=== PATIENT | female | born 1955 | race Hispanic/Latino ===

== ENCOUNTER 2020-02-17 21:38 | Inpatient (IN) | payer OTHER ==
[~2020-02-17] VITALS: Ht 162.6 cm; Wt 102.1 kg
[2020-02-17] MEDS ORDERED: ALBUTEROL INHALER 90MCG/INH IH ONE (21:55)
[2020-02-17] MEDS ORDERED: DEXAMETHASONE SOD PHOSPHATE 10MG/ML 1ML VIAL ONE (21:56)
[2020-02-17] MEDS ORDERED: CEFTRIAXONE SODIUM 1 GM ONE (21:56)
[2020-02-17] MEDS ORDERED: AZITHROMYCIN 500MG+NS 250ML 250 ML IV ONE (21:56)
[2020-02-17 22:03] LABS: ABG BASE EXCESS -3.4 mmol/L (-2.0-3.0); ABG HCO3 20.3 mmol/L (21.0-28.0); ABG OXYGEN SATURATION 89.6 % (95.0-99.0); ABG PCO2 33 mmHg (32-45)
[2020-02-17 22:34] LABS: BASOPHILS % (AUTO) 0.2 % (0.0-5.0); HEMATOCRIT 44.1 % (36-48); LYMPHOCYTES % (AUTO) 10.6 % (21.0-51.0); MEAN CORPUSCULAR HEMOGLOBIN 30.9 pg (27.0-33.0); MEAN CORPUSCULAR VOLUME 90.9 fL (79-99); MONOCYTES % (AUTO) 8.1 % (3.0-13.0); NEUTROPHILS % (AUTO) 80.6 % (40.0-77.0); PLATELET COUNT (AUTO) 87 K/uL (130-400); RED BLOOD CELL COUNT(AUTO) 4.85 MIL/uL (4.00-5.50); RED CELL DISTRIBUTION WIDTH 13.3 % (11.0-15.5); WHITE BLOOD COUNT (AUTO) 4.3 K/uL (4.8-10.8)
[2020-02-17 22:45] LABS: CARBON DIOXIDE 24 mmol/L (21-32); CHLORIDE 103 mmol/L (101-111); CREATININE 0.9 mg/dL (0.5-1.5); GLOMERULAR FILTR. RATE CALC 67 mL/min (>60); GLUCOSE,RANDOM 262 mg/dL (70-105); POTASSIUM 3.6 mmol/L (3.5-5.1); SODIUM SERUM 137 mmol/L (136-145); UREA NITROGEN, BLOOD 26 mg/dL (7-18)
[2020-02-17 22:53] LABS: INR 1.06 (0.85-1.15); PARTIAL THROMBOPLASTIN TIME 30.8 SEC (26.3-35.5); PROTHROMBIN TIME 11.4 SEC (9.6-11.6)
[2020-02-17 22:57] LABS: ALANINE AMINOTRANSFERASE 83 U/L (12-78); ALBUMIN 2.3 g/dL (3.5-5.0); ASPARTATE AMINOTRANSFERASE 165 U/L (10-37); BILIRUBIN,TOTAL 1.8 mg/dL (0.2-1.0); CREATINE KINASE, TOTAL 179 U/L (21-232); MYOGLOBIN 153 ng/mL (10-92); TOTAL PROTEIN, SERUM 7.6 g/dL (6.0-8.3); TROPONIN I < 0.04 ng/mL (0.00-0.06)
[2020-02-18] MEDS ORDERED: IOHEXOL 350 MG/ML 100ML INFUS..BTL IV ONE (01:22)
[2020-02-18] MEDS ORDERED: DiphenhydrAMINE HCL 50 MG/ML VIAL IV PRN (01:45)
[2020-02-18] MEDS ORDERED: ZOLPIDEM TARTRATE 5 MG TAB PO PRN (01:45)
[2020-02-18] MEDS ORDERED: ONDANSETRON HCL 4 MG/2 ML VIAL IV PRN (01:45)
[2020-02-18] MEDS ORDERED: ACETAMINOPHEN 325 MG TAB PO PRN (01:45)
[2020-02-18] MEDS ORDERED: MAG HYDROX/AL HYDROX/SIMETH ES 30 ML SUSP UDCUP PO PRN (01:45)
[2020-02-18] MEDS ORDERED: VANCOMYCIN PROTOCOL PER PHARMACY IV SCH (01:45)
[2020-02-18] MEDS ORDERED: LACTULOSE 20 GM/30 ML UDCUP PO PRN (01:45)
[2020-02-18] MEDS ORDERED: GUAIFENESIN-DM 200/20 MG 10 ML PO PRN (01:45)
[2020-02-18 02:28] LABS: BILIRUBIN,URINE Small (NEGATIVE); COLOR,URINE Dark Yellow (YELLOW); GLUCOSE, URINE (UA) >=1000 mg/dL (NEGATIVE); KETONES,URINE Trace mg/dL (NEGATIVE); LEUKOCYTE ESTERASE ,URINE Small (NEGATIVE); NITRATE,URINE Positive (NEGATIVE); OCCULT BLOOD,URINE Large (NEGATIVE); PH,URINE 5.5 (5.0-8.0); PROTEIN,URINE 300 mg/dL (NEGATIVE)
[2020-02-18 02:48] LABS: APPEARANCE,URINE CLOUDY (CLEAR)
[2020-02-18 03:04] LABS: BACTERIA,URINE Moderate /HPF (None Seen); SQUAMOUS EPITHELIAL CELL,UR Moderate /HPF (0-2); YEAST,URINE BUDDING None Seen /HPF (None Seen)
[2020-02-18] MEDS ORDERED: VANCOMYCIN 1GM+NS 250ML 250 ML IV ONE (03:35)
[2020-02-18 04:33] LABS: BASOPHILS % (AUTO) 0.4 % (0.0-5.0); EOSINOPHILS % (AUTO) 0.2 % (0.0-8.0); HEMATOCRIT 46.7 % (36-48); LYMPHOCYTES % (AUTO) 7.6 % (21.0-51.0); MEAN CORPUSCULAR HGB CONC 34.5 g/dL (32.0-36.0); MONOCYTES % (AUTO) 5.2 % (3.0-13.0); NEUTROPHILS % (AUTO) 83.6 % (40.0-77.0); PLATELET COUNT (AUTO) 90 K/uL (130-400); RED BLOOD CELL COUNT(AUTO) 5.19 MIL/uL (4.00-5.50); RED CELL DISTRIBUTION WIDTH 13.2 % (11.0-15.5)
[2020-02-18] MEDS: SODIUM CHLORIDE 0.9% 1000ML 1,000 ML, 0.9 % SODIUM CHLORIDE 1,000 ML IV SCH ×8 (05:10→20:57)
[2020-02-18 05:30] LABS: ALBUMIN 2.3 g/dL (3.5-5.0); BILIRUBIN,TOTAL 1.8 mg/dL (0.2-1.0); CREATININE 0.7 mg/dL (0.5-1.5); MAGNESIUM 1.7 mg/dL (1.80-2.40); PHOSPHORUS 3.3 mg/dL (2.5-4.9); POTASSIUM 3.9 mmol/L (3.5-5.1); TOTAL PROTEIN, SERUM 7.8 g/dL (6.0-8.3)
[2020-02-18 06:45] VITALS: BP 155/74
[2020-02-18] MEDS ORDERED: ERGOCALCIFEROL (VITAMIN D2) 50,000 UNIT CAPSULE PO SCH (07:02)
[2020-02-18] MEDS: INSULIN LISPRO 100 UNIT/ML 3ML SQ SCH ×5 (07:09→22:00)
[2020-02-18 07:45] VITALS: BP 106/45
--- NOTE | 2020-02-18 08:28 | NUR ---
RECEIVED CALL FROM PT.'S DAUGHTER, OCTAVIA COY, UPDATED ON STATUS AND QUESTIONS ANSWERED, VERBALIZED UNDERSTANDING.
[2020-02-18] MEDS ORDERED: FAMOTIDINE 20MG TAB 20 MG TAB PO SCH (09:00)
[2020-02-18] MEDS ORDERED: DEXAMETHASONE SOD PHOSPHATE 4 MG/ML 1ML VIAL IVP SCH (09:00)
[2020-02-18] MEDS: BENZONATATE 100 MG CAPSULE PO SCH ×3 (09:00→20:58)
[2020-02-18] MEDS ORDERED: DEXAMETHASONE 4 MG TAB PO SCH (09:00)
[2020-02-18] MEDS ORDERED: ENOXAPARIN SODIUM 40 MG/0.4 ML SYRINGE SQ SCH (09:00)
[2020-02-18] MEDS: ZINC SULFATE 220 CAPSULE PO SCH (09:00)
[2020-02-18] MEDS: ASCORBIC ACID 500 MG TAB PO SCH (09:00)
--- NOTE | 2020-02-18 09:25 | NUR ---
CHART CHECK COMPLETED. Pt IS A 64 Y.O. FEMALE ADMITTED SECONDARY TO RESPIRATORY DISTRESS, SEPSIS, R/O COVID, HYPERGLYCEMIA, AND LACTIC ACID ACIDOSIS. Pt WITH NO SIGNIFICANT PAST MEDICAL HISTORY REPORTED . Pt CURRENTLY ON REGULAR TEXTURE,THIN LIQUID DIET (CONSISTENT CARB). Pt ON BIPAP/CPAP AT THIS TIME; PLEASE CONSIDER NPO, SHORT TERM ALTERNATE MEANS OF NUTRITION/HYDRATION DUE TO POOR RESPIRATORY STATUS. Pt AT HIGH RISK FOR ASPIRATION ON BIPAP. Addendum: 02/18/20 at 0934 by [facility] Amended: Links added.
[2020-02-18] MEDS ORDERED: MAGNESIUM 2GM PREMIX 50ML 50 ML IV PRN (10:45)
--- NOTE | 2020-02-18 11:27 | NUR ---
DC PLAN PATIENT IN COVID UNIT ON BIPAP RR AT 50. CALLED DAUGHTER MAXI NO ANSWER. CALLED DTR KAYLEE ANSWERED. SAID PATIENT LIVES WITH [facility]. INDEPENDENT ABLE TO PERFORM ADL'S. PATIENT HAS NO SERVICES OR DME'S. FEELS SAFE FOR PATIENT TO GO HOME. GAVE LUISANA FOR ANY DME FOR 02 IF PATIENT NEEDS. Addendum: 02/18/20 at 1130 by RADHAMES PALAFOX RN CM Amended: Links added.
[2020-02-18 11:30] VITALS: BP 117/66
[2020-02-18] MEDS: FAMOTIDINE/PF 20 MG/2 ML VIAL IV SCH ×2 (12:31→21:56)
[2020-02-18] MEDS ORDERED: VANCOMYCIN 2 GM in SODIUM CHLORIDE 0.9% 500ML 500 ML IV ONE (13:00)
--- NOTE | 2020-02-18 13:30 | NUR ---
14FR F/C INSERTED ON FIRST ATTEMPT USING STERILE TECHNIQUE. PT. TOLERATED W/O C/O. [place] NEIL, FEMALE PCP PRESENT AT BEDSIDE DURING INSERTION. DARK YELLOW URINE NOTED ON F/C UPON INSERTION. CALL LIGHT WITHIN REACH.
--- NOTE | 2020-02-18 14:29 | NUR ---
RECEIVED CALL FROM PT.'S DAUGHTER, OCTAVIA COY, UPDATED ON STATUS AND QUESTIONS ANSWERED.
--- NOTE | 2020-02-18 15:00 | NUR ---
PT. TURNED TO LEFT SEMI-PRONE POSITION WITH ASSISTANCE FROM [place] NEIL, PCP.
[2020-02-18 15:30] VITALS: BP 127/60
--- NOTE | 2020-02-18 16:00 | NUR ---
PT. TURNED HERSELF TO LEFT SIDE-LYING POSITION. CALL LIGHT WITHIN REACH.
[2020-02-18] MEDS ORDERED: PHARMACY COMMUNICATION MISC SCH (16:30)
[2020-02-18] MEDS ORDERED: METHYLPREDNISOLONE SOD SUCC 125MG/2ML VIAL ONE (17:18)
[2020-02-18] MEDS ORDERED: LOPERAMIDE HCL 2 MG CAP PO ONE (17:28)
[2020-02-18] MEDS: METHYLPREDNISOLONE SOD SUCC 125MG/2ML VIAL IVP SCH ×2 (17:54→21:56)
[2020-02-18] MEDS ORDERED: REMDESIVIR (EUA) 520 200 MG in SODIUM CHLORIDE 0.9% 250 ML IV ONE (18:00)
--- NOTE | 2020-02-18 18:45 | NUR ---
SPOKE WITH PT. RE:ORDER TO ADMINISTER CONVALESCENT PLASMA; BENEFITS AND RISKS EXPLAINED TO PT. IN DETAIL. PT. REFUSED CONVALESCENT PLASMA, STATES, "NO, I DON'T WANT IT [ITALIAN]."
[2020-02-18] MEDS: PHARMACY COMMUNICATION MISC SCH ×3 (18:49→20:58)
[2020-02-18 19:00] VITALS: BP 127/44
[2020-02-18] MEDS ORDERED: SODIUM CHLORIDE 0.9% 1000ML 1,000 ML IV ONE (20:27)
[2020-02-18 23:00] VITALS: BP 99/72
[2020-02-19] VITALS (14 sets, daily range): BP systolic 61–140; BP diastolic 31–81
[2020-02-19] MEDS: VANCOMYCIN 1GM+NS 250ML IV SCH ×3 (00:16→23:29)
[2020-02-19] MEDS: METHYLPREDNISOLONE SOD SUCC 125MG/2ML VIAL IVP SCH ×5 (02:52→13:36)
[2020-02-19 05:25] LABS: BASOPHILS % (AUTO) 0.1 % (0.0-5.0); EOSINOPHILS % (AUTO) 2.4 % (0.0-8.0); HEMATOCRIT 40.6 % (36-48); LYMPHOCYTES % (AUTO) 5.9 % (21.0-51.0); MEAN CORPUSCULAR HEMOGLOBIN 31.6 pg (27.0-33.0); MEAN CORPUSCULAR HGB CONC 34.5 g/dL (32.0-36.0); MEAN CORPUSCULAR VOLUME 91.6 fL (79-99); MONOCYTES % (AUTO) 4.3 % (3.0-13.0); NEUTROPHILS % (AUTO) 86.9 % (40.0-77.0); PLATELET COUNT (AUTO) 91 K/uL (130-400); RED BLOOD CELL COUNT(AUTO) 4.43 MIL/uL (4.00-5.50); RED CELL DISTRIBUTION WIDTH 13.6 % (11.0-15.5); WHITE BLOOD COUNT (AUTO) 7.4 K/uL (4.8-10.8)
[2020-02-19 05:54] LABS: ALBUMIN 1.8 g/dL (3.5-5.0); BILIRUBIN,DIRECT 0.9 mg/dL (0.0-0.3); BILIRUBIN,TOTAL 1.7 mg/dL (0.2-1.0); CREATININE 0.5 mg/dL (0.5-1.5); MAGNESIUM 2.4 mg/dL (1.80-2.40); PHOSPHORUS 2.1 mg/dL (2.5-4.9); POTASSIUM 4.1 mmol/L (3.5-5.1); TOTAL PROTEIN, SERUM 6.3 g/dL (6.0-8.3)
[2020-02-19] MEDS: INSULIN LISPRO 100 UNIT/ML 3ML SQ SCH ×4 (06:49→21:00)
[2020-02-19] MEDS: BENZONATATE 100 MG CAPSULE PO SCH ×3 (09:00→21:00)
[2020-02-19] MEDS: ASCORBIC ACID 500 MG TAB PO SCH (09:00)
[2020-02-19] MEDS: ZINC SULFATE 220 CAPSULE PO SCH (09:00)
[2020-02-19] MEDS ORDERED: ENOXAPARIN SODIUM 60 MG/0.6 ML SQ SCH (09:00)
--- NOTE | 2020-02-19 09:00 | NUR ---
PRONE PT IN BED WITH CPAP AT 10 , O2 SAT 84-86%, RESPIRATIONS SHALLOW AND RAPID; PT PLACED IN PRONE POSITION WITH ASSIST OF RT. O2 SAT UP TO 95%.
--- NOTE | 2020-02-19 09:10 | NUR ---
PCP POLITICAL ANTHROPOLOGIST MADE AWARE OF RESPIRATION RATE AND O2 SAT, STATES TO NOTIFY PULMONARY
[2020-02-19] MEDS: FAMOTIDINE/PF 20 MG/2 ML VIAL IV SCH ×2 (09:11→23:23)
--- NOTE | 2020-02-19 09:15 | NUR ---
O2 SAT PT REMAINS IN PRONE POSITION, O2 SAT 97-99%.
[2020-02-19] MEDS: PHARMACY COMMUNICATION MISC SCH ×2 (12:00→16:42)
--- NOTE | 2020-02-19 13:00 | NUR ---
PULMONARY DR CORDOVA AWARE OF PT STATUS, STATES OK TO SWITCH TO BIPAP, RT TO TITRATE. PT MORE CALM, O2 SAT 95-99%
[2020-02-19] MEDS: SODIUM CHLORIDE 0.9% 1000ML 1,000 ML IV SCH ×2 (13:35→18:01)
[2020-02-19] MEDS ORDERED: COMPOUND IV REFRIGERATED 1 EACH IVSOLN MISC PRN (14:15)
[2020-02-19] MEDS: AZITHROMYCIN 500MG+NS 250ML 250 ML IV SCH (15:43)
--- NOTE | 2020-02-19 16:00 | NUR ---
POSITIONED PT TURNED SELF ON SIDE, O2 SAT 95-97%, PT ON BIPAP. DENIES PAIN, RESPIRATION RATE 40-50, MD AWARE
--- NOTE | 2020-02-19 16:30 | NUR ---
O2 SAT PT CONTINUES ON PRONE POSITION, DENIES PAIN, O2 SAT 97-99%
[2020-02-19] MEDS ORDERED: PHARMACY COMMUNICATION MISC SCH (16:45)
[2020-02-19] MEDS ORDERED: CEFTRIAXONE SODIUM 1 GM IVP SCH (17:04)
--- NOTE | 2020-02-19 18:30 | NUR ---
PM ASSESSMENT PT O2 SAT 95%, CONTINUES ON BIPAP. PT REQUESTING WATER, THAKKAR AWARE NPO. MOISTENED ORAL CAVITY.
[2020-02-19] MEDS: REMDESIVIR (EUA) 520 100 MG in SODIUM CHLORIDE 0.9% 250 ML IV SCH (18:51)
--- NOTE | 2020-02-19 20:30 | NUR ---
PT RESPIRATION 62 RT AT BED SIDE PATIENT SATING 94% PT TAKES OFF HER FACE MASK, MADE AWARE TO KEEP IT ON VITAL SIGNS STABLE DAUGHTER CALLED ,SHE ASKED IF SHE COULD COME SEE HER MOM DAUGHTER ASKED IF MOM WERE TO NEED TO BE INTUBATED, IF THAT IS SOMETHING THEY WOULD WANT, DAUGHTER SAID YES. GEOPHYSICAL PROSPECTOR AWARE OF THIS AND ALSO CHARGE NURSE
--- NOTE | 2020-02-19 20:40 | NUR ---
RAPID RESPONSE CALLED PATIENT LETHARGIC, AROUSAL BUT IS DESATTING TO LOW 80'S
[2020-02-19 21:08] LABS: BASOPHILS % (AUTO) 0.1 % (0.0-5.0); HEMATOCRIT 43.7 % (36-48); LYMPHOCYTES % (AUTO) 3.8 % (21.0-51.0); MEAN CORPUSCULAR HEMOGLOBIN 31.2 pg (27.0-33.0); MEAN CORPUSCULAR HGB CONC 33.9 g/dL (32.0-36.0); MEAN CORPUSCULAR VOLUME 92.2 fL (79-99); MONOCYTES % (AUTO) 3.3 % (3.0-13.0); PLATELET COUNT (AUTO) 173 K/uL (130-400); RED BLOOD CELL COUNT(AUTO) 4.74 MIL/uL (4.00-5.50); RED CELL DISTRIBUTION WIDTH 13.8 % (11.0-15.5); WHITE BLOOD COUNT (AUTO) 16.2 K/uL (4.8-10.8)
--- NOTE | 2020-02-19 21:13 | NUR ---
PT INTUBATED BY DR. LEON BARNETT AT BED SIDE RAPID RESPONSE CALLED
[2020-02-19] MEDS ORDERED: FENTANYL 2500MCG+NS 250ML 250 ML IV ONE (21:19)
[2020-02-19] MEDS ORDERED: PROPOFOL 1000 MG/100 ML 100 ML IV ONE ×2 (21:19→22:01)
[2020-02-19] MEDS ORDERED: FUROSEMIDE 10 MG/ML 4ML VIAL ONE (21:36)
[2020-02-19 21:37] LABS: CREATININE 0.7 mg/dL (0.5-1.5); POTASSIUM 3.6 mmol/L (3.5-5.1)
--- NOTE | 2020-02-19 21:40 | NUR ---
Received patient Received report after transport of patient, pt intubated and stable, Dr. Christensen at bedside gave orders to start Propofol, Darek-sed, and Fentanyl. One time order for Lasix 60mg IVP and to prone. Daughter allowed to see patient for 15 mins, after getting patient settled. Charge Nurse Magdy speaking to daughter. Daughter wants mom to remain Full Code.
[2020-02-19 21:41] LABS: ALBUMIN 1.9 g/dL (3.5-5.0); BILIRUBIN,TOTAL 1.9 mg/dL (0.2-1.0); MAGNESIUM 1.9 mg/dL (1.80-2.40); TOTAL PROTEIN, SERUM 6.4 g/dL (6.0-8.3)
[2020-02-19] MEDS: FUROSEMIDE 10 MG/ML 2ML VIAL IV SCH (21:50)
[2020-02-19] MEDS ORDERED: PROPOFOL 1000 MG/100 ML IV PRN (22:30)
[2020-02-19] MEDS: METHYLPREDNISOLONE SOD SUCC 40MG/ML 1ML IVP SCH (23:23)
[2020-02-19] MEDS ORDERED: MIDAZOLAM 100MG-0.9% NS 100ML 100ML BAG IV ONE (23:30)
[2020-02-19] MEDS ORDERED: FENTANYL CITRATE PF 0.05 MG/ML 2,500 MCG in SODIUM CHLORIDE 0.9% 200 ML IVPB SCH (23:30)
[2020-02-20] VITALS (48 sets, daily range): BP systolic 83–122; BP diastolic 42–67
[2020-02-20] MEDS ORDERED: MIDAZOLAM HCL 50 MG in SODIUM CHLORIDE 0.9% 50 ML IV SCH (00:15)
[2020-02-20] MEDS ORDERED: PROPOFOL 1000 MG/100 ML 100 ML IV SCH (00:15)
[2020-02-20] MEDS: SODIUM CHLORIDE 0.9% 1000ML 1,000 ML IV SCH ×4 (00:50→20:48)
[2020-02-20 01:26] LABS: ABG BASE EXCESS -0.9 mmol/L (-2.0-3.0); ABG HCO3 24.9 mmol/L (21.0-28.0); ABG OXYGEN SATURATION 98.9 % (95.0-99.0); ABG PCO2 46 mmHg (32-45)
[2020-02-20 01:48] LABS: BASOPHILS % (AUTO) 0.1 % (0.0-5.0); HEMATOCRIT 41.8 % (36-48); LYMPHOCYTES % (AUTO) 3.5 % (21.0-51.0); MEAN CORPUSCULAR HEMOGLOBIN 31.3 pg (27.0-33.0); MEAN CORPUSCULAR HGB CONC 33.7 g/dL (32.0-36.0); MEAN CORPUSCULAR VOLUME 92.7 fL (79-99); MONOCYTES % (AUTO) 3.4 % (3.0-13.0); NEUTROPHILS % (AUTO) 92.5 % (40.0-77.0); PLATELET COUNT (AUTO) 118 K/uL (130-400); RED BLOOD CELL COUNT(AUTO) 4.51 MIL/uL (4.00-5.50); RED CELL DISTRIBUTION WIDTH 13.9 % (11.0-15.5); WHITE BLOOD COUNT (AUTO) 14.2 K/uL (4.8-10.8)
[2020-02-20] MEDS: VANCOMYCIN 1GM+NS 250ML IV SCH ×3 (04:43→20:42)
[2020-02-20] MEDS: METHYLPREDNISOLONE SOD SUCC 40MG/ML 1ML IVP SCH ×3 (04:44→20:33)
[2020-02-20] MEDS: PHARMACY COMMUNICATION MISC SCH ×4 (06:00→19:30)
[2020-02-20 07:07] LABS: ALBUMIN 1.7 g/dL (3.5-5.0); CRP QUANTITATIVE 124.1 mg/L (0.00-9.0); MAGNESIUM 1.9 mg/dL (1.80-2.40); PHOSPHORUS 1.9 mg/dL (2.5-4.9); POTASSIUM 4.1 mmol/L (3.5-5.1); TOTAL PROTEIN, SERUM 5.5 g/dL (6.0-8.3)
[2020-02-20 07:36] LABS: HEMOGLOBIN A1C 8.3 % (4.0-6.0)
[2020-02-20] MEDS: ZINC SULFATE 220 CAPSULE PO SCH (09:00)
[2020-02-20] MEDS: ASCORBIC ACID 500 MG TAB PO SCH (09:00)
[2020-02-20] MEDS: BENZONATATE 100 MG CAPSULE PO SCH ×3 (09:00→21:00)
[2020-02-20] MEDS: CEFTRIAXONE SODIUM 1 GM IVP SCH ×2 (09:20→20:34)
[2020-02-20] MEDS: FAMOTIDINE/PF 20 MG/2 ML VIAL IV SCH ×2 (09:20→20:34)
[2020-02-20] MEDS: ENOXAPARIN SODIUM 60 MG/0.6 ML SQ SCH ×2 (09:37→20:33)
[2020-02-20 09:59] LABS: ABG BASE EXCESS -1.5 mmol/L (-2.0-3.0); ABG HCO3 23.9 mmol/L (21.0-28.0); ABG OXYGEN SATURATION 98.4 % (95.0-99.0); ABG PCO2 43 mmHg (32-45)
[2020-02-20] MEDS: INSULIN LISPRO 100 UNIT/ML 3ML SQ SCH ×4 (10:29→22:42)
[2020-02-20] MEDS ORDERED: FENTANYL 2500MCG+NS 250ML 250 ML IV ONE (12:29)
[2020-02-20] MEDS: AZITHROMYCIN 500MG+NS 250ML 250 ML IV SCH (15:00)
[2020-02-20 17:23] LABS: MEAN CORPUSCULAR HEMOGLOBIN 31.7 pg (27.0-33.0); MEAN CORPUSCULAR HGB CONC 33.7 g/dL (32.0-36.0); MEAN CORPUSCULAR VOLUME 94.1 fL (79-99); PLATELET COUNT (AUTO) 73 K/uL (130-400); RED BLOOD CELL COUNT(AUTO) 4.04 MIL/uL (4.00-5.50); RED CELL DISTRIBUTION WIDTH 14.1 % (11.0-15.5); WHITE BLOOD COUNT (AUTO) 4.6 K/uL (4.8-10.8)
[2020-02-20 17:42] LABS: BAND NEUTROPHILS % (MANUAL) 7 % (0-2); LYMPHOCYTES % (MANUAL) 7 % (22-44); MAN.DIFF COMMENT-IMPRESSION MANUAL DIFFERENTIAL; MONOCYTES % (MANUAL) 2 % (2-9); SEGMENTED NEUTROPHILS % 84 % (40-70)
[2020-02-20] MEDS: REMDESIVIR (EUA) 520 100 MG in SODIUM CHLORIDE 0.9% 250 ML IV SCH (19:30)
[2020-02-20] MEDS: FUROSEMIDE 10 MG/ML 2ML VIAL IV SCH (20:41)
[2020-02-21] VITALS (46 sets, daily range): BP systolic 91–116; BP diastolic 45–60
[2020-02-21] MEDS: VANCOMYCIN 1GM+NS 250ML IV SCH (04:00)
[2020-02-21 04:37] LABS: BASOPHILS % (AUTO) 0.2 % (0.0-5.0); HEMATOCRIT 37.2 % (36-48); LYMPHOCYTES % (AUTO) 7.2 % (21.0-51.0); MEAN CORPUSCULAR HEMOGLOBIN 31.1 pg (27.0-33.0); MEAN CORPUSCULAR HGB CONC 33.3 g/dL (32.0-36.0); MEAN CORPUSCULAR VOLUME 93.2 fL (79-99); MONOCYTES % (AUTO) 4.4 % (3.0-13.0); NEUTROPHILS % (AUTO) 87.8 % (40.0-77.0); PLATELET COUNT (AUTO) 76 K/uL (130-400); RED BLOOD CELL COUNT(AUTO) 3.99 MIL/uL (4.00-5.50); RED CELL DISTRIBUTION WIDTH 13.9 % (11.0-15.5)
[2020-02-21] MEDS: SODIUM CHLORIDE 0.9% 1000ML 1,000 ML IV SCH ×2 (04:38→12:45)
[2020-02-21] MEDS: PHARMACY COMMUNICATION MISC SCH ×2 (04:39)
[2020-02-21] MEDS: METHYLPREDNISOLONE SOD SUCC 40MG/ML 1ML IVP SCH ×3 (04:39→21:00)
--- NOTE | 2020-02-21 05:18 | NUR ---
CRITICAL VANCOMYCIN TROUGH LAB CALLED IN REFERENCE TO VANCOMYCIN TROUGH LEVEL 26.2.. 0400 Vancomycin not given. Results faxed to pharmacy for dose adjustment.
[2020-02-21] MEDS: INSULIN LISPRO 100 UNIT/ML 3ML SQ SCH ×4 (05:35→21:00)
[2020-02-21] MEDS: FENTANYL 2500MCG+NS 250ML 250 ML IV SCH ×2 (06:41→23:53)
[2020-02-21] MEDS: BENZONATATE 100 MG CAPSULE PO SCH ×3 (09:00→21:00)
[2020-02-21 09:16] LABS: ALBUMIN 1.6 g/dL (3.5-5.0); BILIRUBIN,DIRECT 0.2 mg/dL (0.0-0.3); BILIRUBIN,TOTAL 1.3 mg/dL (0.2-1.0); CREATININE 1.2 mg/dL (0.5-1.5); POTASSIUM 4.5 mmol/L (3.5-5.1); TOTAL PROTEIN, SERUM 5.4 g/dL (6.0-8.3)
[2020-02-21] MEDS: CEFTRIAXONE SODIUM 1 GM IVP SCH ×2 (09:31→21:00)
[2020-02-21] MEDS: FAMOTIDINE/PF 20 MG/2 ML VIAL IV SCH ×2 (09:37→21:02)
[2020-02-21] MEDS: ASCORBIC ACID 500 MG TAB PO SCH (09:37)
[2020-02-21] MEDS: ENOXAPARIN SODIUM 60 MG/0.6 ML SQ SCH ×2 (09:39→21:02)
[2020-02-21] MEDS: ZINC SULFATE 220 CAPSULE PO SCH (09:39)
[2020-02-21 11:16] LABS: ABG BASE EXCESS -5.4 mmol/L (-2.0-3.0); ABG HCO3 20.7 mmol/L (21.0-28.0); ABG OXYGEN SATURATION 98.3 % (95.0-99.0); ABG PCO2 43 mmHg (32-45)
[2020-02-21 12:42] LABS: CREATININE 1.5 mg/dL (0.5-1.5); POTASSIUM 4.2 mmol/L (3.5-5.1)
[2020-02-21] MEDS: MEROPENEM 1 GM VIAL IVP SCH ×2 (12:45→23:13)
--- NOTE | 2020-02-21 13:41 | NUR ---
Call made to Infectious disease doctor Sen no response , attempt to leave voicemail, voicemail box full
[2020-02-21] MEDS: AZITHROMYCIN 500MG+NS 250ML 250 ML IV SCH (15:51)
[2020-02-21] MEDS: REMDESIVIR (EUA) 520 100 MG in SODIUM CHLORIDE 0.9% 250 ML IV SCH (18:13)
--- NOTE | 2020-02-21 20:45 | NUR ---
URINE OUTPUT UPON REPOSITIONING IBARRA DRAINED ABOUT 200 MLS OF HEMATURIC URINE.
[2020-02-22] VITALS (64 sets, daily range): BP systolic 62–140; BP diastolic 32–67
--- NOTE | 2020-02-22 01:30 | NUR ---
FENTANYL TITRATION HR IN THE 120'S FENTANYL DRIP INCREASED FROM 15 MCG TO 16.5 MCGS.
--- NOTE | 2020-02-22 02:30 | NUR ---
FENTANYL DRIP HEART RATE IN THE 120'S FENTANYL DRIP INCREASED TO 18 MCGS / HOUR
--- NOTE | 2020-02-22 03:30 | NUR ---
HEART RATE FENTANYL DRIP DR MCKINNEY PAGED REGARDING IRREGULAR BREATHING PATTERN, HEART RATE AND BLOOD PRESSURE. NO NEW ORDERS RECEIVED. FENTANYL DRIP DECREASED TP 15 MCGS / HOUR
[2020-02-22 03:59] LABS: BASOPHILS % (AUTO) 0.2 % (0.0-5.0); HEMATOCRIT 44.4 % (36-48); MEAN CORPUSCULAR HEMOGLOBIN 31.2 pg (27.0-33.0); MEAN CORPUSCULAR HGB CONC 32.7 g/dL (32.0-36.0); MEAN CORPUSCULAR VOLUME 95.5 fL (79-99); MONOCYTES % (AUTO) 4.1 % (3.0-13.0); NEUTROPHILS % (AUTO) 92.9 % (40.0-77.0); NUCLEATED RED BLOOD CELLS 0.1 % (0.0-0.19); PLATELET COUNT (AUTO) 109 K/uL (130-400); RED BLOOD CELL COUNT(AUTO) 4.65 MIL/uL (4.00-5.50); RED CELL DISTRIBUTION WIDTH 14.3 % (11.0-15.5); WHITE BLOOD COUNT (AUTO) 18.6 K/uL (4.8-10.8)
[2020-02-22 04:12] LABS: ALBUMIN 1.7 g/dL (3.5-5.0); BILIRUBIN,DIRECT 0.4 mg/dL (0.0-0.3); BILIRUBIN,TOTAL 1.6 mg/dL (0.2-1.0); CREATININE 1.6 mg/dL (0.5-1.5); CRP QUANTITATIVE 123.2 mg/L (0.00-9.0); POTASSIUM 4.8 mmol/L (3.5-5.1); TOTAL PROTEIN, SERUM 6.2 g/dL (6.0-8.3)
[2020-02-22 04:19] LABS: INR 1.57 (0.85-1.15); PROTHROMBIN TIME 16.7 SEC (9.6-11.6)
[2020-02-22] MEDS: METHYLPREDNISOLONE SOD SUCC 40MG/ML 1ML IVP SCH ×3 (04:32→20:53)
--- NOTE | 2020-02-22 06:58 | NUR ---
BREATHING PATTERN PAGED DR MCKINNEY REGARDING, HEART RATE AND RESPIRATORY PATTERN. ADVISED TO HAVE RESPIRATORY ASSESS PATIENT AND NOTIFY DR MCKINNEY IF RESPIRATORY HAS NO SUGGESTIONS FOR CHANGE. NO OTHER ORDERS RECEIVED.
[2020-02-22] MEDS ORDERED: NOREPINEPHRINE 4MG/NS 250ML 250 ML IV SCH (07:45)
[2020-02-22] MEDS ORDERED: NOREPINEPHRINE 4MG/NS 250ML 250 ML IV ONE (08:11)
[2020-02-22] MEDS: BENZONATATE 100 MG CAPSULE PO SCH ×3 (09:00→21:00)
--- NOTE | 2020-02-22 10:13 | NUR ---
RD NOTIFICATION - TUBE FEEDING Notification for Tube Feeding Recommendations. Recommend Continuous Glucerna 1.5 TF initiated at 10mls/hr. Goal rate 40mls/hr. Recommend Flushes 100mls Q4hrs. Recommendations faxed to 2C. RN notified. Pt with new DM, ARF, positive for COVID-19. Obesity Class II. Pt with dehydration. Monitor Kidney function. RD to follow up.
[2020-02-22 10:18] LABS: INR 1.68 (0.85-1.15); PROTHROMBIN TIME 17.8 SEC (9.6-11.6)
[2020-02-22] MEDS: FAMOTIDINE/PF 20 MG/2 ML VIAL IV SCH ×2 (10:40→20:53)
[2020-02-22] MEDS: ASCORBIC ACID 500 MG TAB PO SCH (10:40)
[2020-02-22] MEDS: CEFTRIAXONE SODIUM 1 GM IVP SCH (10:40)
[2020-02-22] MEDS: ENOXAPARIN SODIUM 60 MG/0.6 ML SQ SCH ×2 (10:42→20:57)
[2020-02-22] MEDS: ZINC SULFATE 220 CAPSULE PO SCH (10:43)
[2020-02-22] MEDS: INSULIN LISPRO 100 UNIT/ML 3ML SQ SCH ×4 (11:12→23:00)
[2020-02-22] MEDS: MEROPENEM 1 GM VIAL IVP SCH (12:00)
[2020-02-22] MEDS ORDERED: FENTANYL CITRATE PF 50 MCG/1 ML 2ML VIAL ONE (12:24)
[2020-02-22] MEDS: AZITHROMYCIN 500MG+NS 250ML 250 ML IV SCH (15:00)
--- NOTE | 2020-02-22 15:25 | NUR ---
Central Line placed by Cesario Long CRNA, Rocuronium 50mg IV bolus given, patient tolerated procedure well. X-ray called to check placement. central line in place.
[2020-02-22] MEDS ORDERED: PHARMACY COMMUNICATION MISC SCH (15:30)
[2020-02-22] MEDS ORDERED: ROCURONIUM BROMIDE 10MG/1ML 5ML VL IV ONE (15:35)
[2020-02-22] MEDS ORDERED: SODIUM CHLORIDE 0.9% 100 ML IV ONE (17:28)
[2020-02-22] MEDS: REMDESIVIR (EUA) 520 100 MG in SODIUM CHLORIDE 0.9% 250 ML IV SCH (18:45)
--- NOTE | 2020-02-22 20:43 | NUR ---
Nursing Note-Orville Cortes from US, called to get an status update for pending US RUQ. Per US, patient must be NPO and supine. Patient currently has tube feeding infusing. Sophia stated will cancel and reorder pending US due to patient not being NPO.
[2020-02-22] MEDS ORDERED: NOREPINEPHRINE BITARTRATE 16 MG in SODIUM CHLORIDE 0.9% 250 ML IV SCH (20:45)
[2020-02-23] VITALS (88 sets, daily range): BP systolic 49–158; BP diastolic 28–113
[2020-02-23] MEDS ORDERED: DILTIAZEM HCL 125 MG/25 ML VIAL IV ONE (00:15)
[2020-02-23] MEDS ORDERED: SODIUM CHLORIDE 0.9% 100 ML IV ONE (00:19)
[2020-02-23] MEDS ORDERED: DILTIAZEM HCL 5 MG/ML 10 ML VIAL IV STA (00:27)
[2020-02-23] MEDS ORDERED: DILTIAZEM HCL 125 MG/25 ML 125 MG in SODIUM CHLORIDE 0.9% 100 ML IV SCH (00:30)
[2020-02-23] MEDS: MEROPENEM 1 GM VIAL IVP SCH ×2 (01:34→12:00)
[2020-02-23 05:01] LABS: BASOPHILS % (AUTO) 0.3 % (0.0-5.0); HEMATOCRIT 43.5 % (36-48); LYMPHOCYTES % (AUTO) 2.1 % (21.0-51.0); MEAN CORPUSCULAR HEMOGLOBIN 30.7 pg (27.0-33.0); MONOCYTES % (AUTO) 5.4 % (3.0-13.0); NEUTROPHILS % (AUTO) 91.2 % (40.0-77.0); NUCLEATED RED BLOOD CELLS 3.3 % (0.0-0.19); PLATELET COUNT (AUTO) 246 K/uL (130-400); RED BLOOD CELL COUNT(AUTO) 4.53 MIL/uL (4.00-5.50); WHITE BLOOD COUNT (AUTO) 19.8 K/uL (4.8-10.8)
[2020-02-23] MEDS: INSULIN LISPRO 100 UNIT/ML 3ML SQ SCH (05:44)
[2020-02-23 05:57] LABS: ALBUMIN 1.6 g/dL (3.5-5.0); BILIRUBIN,DIRECT 1.4 mg/dL (0.0-0.3); CRP QUANTITATIVE 150.8 mg/L (0.00-9.0); POTASSIUM 5.1 mmol/L (3.5-5.1); TOTAL PROTEIN, SERUM 6.1 g/dL (6.0-8.3)
--- NOTE | 2020-02-23 06:28 | NUR ---
nursing note 06 MD baker, patient Levophed 1mcg/kg/min, patient not maintaining MAP and/or SBP per order/parameter. Addendum: 02/23/20 at 0645 by Indy Segundo RN RN MD repaged via engineering secretary at extension [phone] Addendum: 02/23/20 at 0655 by Indy Segundo RN RN [phone] repaged #[phone] Addendum: 02/23/20 at 0706 by Indy Segundo RN RN order received to start vasopressin, see orders. BUN reported, no signs of bleeding noted.
[2020-02-23] MEDS ORDERED: VASOPRESSIN 40 UNITS in SODIUM CHLORIDE 0.9% 40 ML IV SCH (07:00)
[2020-02-23] MEDS ORDERED: SODIUM BICARB 50MEQ 50ML VIAL IV SCH (07:52)
[2020-02-23] MEDS ORDERED: CALCIUM CHLORIDE 100 MG/ML 10 ML SYG IVP SCH (08:00)
[2020-02-23] MEDS ORDERED: PHENYLEPHRINE HCL 10 MG in SODIUM CHLORIDE 0.9% 250 ML IV PRN (08:00)
[2020-02-23] MEDS ORDERED: SODIUM BICARB 50MEQ 50ML VIAL ONE ×2 (08:04→16:41)
[2020-02-23 08:17] LABS: ABG OXYGEN SATURATION 95.9 % (95.0-99.0); ABG PCO2 52 mmHg (32-45)
[2020-02-23] MEDS: BENZONATATE 100 MG CAPSULE PO SCH ×2 (09:00→14:00)
[2020-02-23] MEDS ORDERED: DEXAMETHASONE SOD PHOSPHATE 4 MG/ML 1ML VIAL IVP SCH (09:00)
[2020-02-23] MEDS: ZINC SULFATE 220 CAPSULE PO SCH (09:06)
[2020-02-23] MEDS: FAMOTIDINE/PF 20 MG/2 ML VIAL IV SCH (09:07)
[2020-02-23] MEDS: ENOXAPARIN SODIUM 60 MG/0.6 ML SQ SCH (09:09)
[2020-02-23] MEDS: ASCORBIC ACID 500 MG TAB PO SCH (09:19)
[2020-02-23] MEDS ORDERED: NOREPINEPHRINE 4MG/NS 250ML 250 ML IV ONE ×2 (09:54→14:58)
[2020-02-23] MEDS ORDERED: NOREPINEPHRINE BITARTRATE 32 MG in SODIUM CHLORIDE 0.9% 250 ML IV SCH ×2 (11:00)
[2020-02-23] MEDS ORDERED: CISATRACURIUM BESYLATE 2 MG/ML 10ML VIAL IVP SCH (11:15)
[2020-02-23] MEDS ORDERED: CISATRACURIUM BESYLATE 100 MG in SODIUM CHLORIDE 0.9% 100 ML IV SCH (11:30)
[2020-02-23] MEDS ORDERED: PHENYLEPHRINE 100 MG/NS 250ML IV SCH ×2 (12:45)
[2020-02-23] MEDS ORDERED: SODIUM CHLORIDE 0.9% 500ML 500 ML IV ONE (14:29)
[2020-02-23] MEDS ORDERED: HEPARIN SODIUM 5000UNIT/ML 1ML VIAL ONE (14:46)
[2020-02-23] MEDS: AZITHROMYCIN 500MG+NS 250ML 250 ML IV SCH (15:00)
--- NOTE | 2020-02-23 16:30 | NUR ---
RN assumed care of pt at this time. NET FRONT END DEVELOPER at bedside to place arterial line. Unable to get BP reading. pt maxed on levophed, vasopressin, and neosynephrine 80mcg fentanyl running, 4mg versed, and nimbex drip. Pt mottled and cool to touch. Dr. Sharma called. Reviewed abg results with MD. STAT orders for 3 amps of bicarb and bicarb drip. RN will monitor.
[2020-02-23 16:38] LABS: ABG BASE EXCESS -22.3 mmol/L (-2.0-3.0); ABG HCO3 10.3 mmol/L (21.0-28.0); ABG OXYGEN SATURATION 81.3 % (95.0-99.0); ABG PCO2 50 mmHg (32-45)
[2020-02-23] MEDS ORDERED: SODIUM BICARB 8.4% 50ML SYRING 150 MEQ in DEXTROSE 5%-WATER 850 ML IV SCH (16:45)
[2020-02-23] MEDS ORDERED: HYDROCORTISONE SOD SUCCINATE 100 MG/2 ML VIAL IV SCH (18:00)
[2020-02-23] MEDS ORDERED: ENOXAPARIN SODIUM 100 MG/1 ML SQ SCH (18:00)
--- NOTE | 2020-02-23 18:00 | NUR ---
pt with low BP and decreased 02 sat. pts daughter at bedside. updated on grim prognosis. as per daughter pt is still a full code.
--- NOTE | 2020-02-23 19:36 | NUR ---
Nursing Note Patient report received from off going shift. 1919 at bedside with RT, patient's Spo2 decrease, see vitals range. Patient on vent full support AC/RR30/TV400/PEEP14/FIO2 100%. Addendum: 02/23/20 at 2015 by Indy Segundo RN RN Enrique bartlett, see vitals for BP values. Patient on maximum dose Parminder, Levo, Vaso.Will continue to give full support.
--- NOTE | 2020-02-23 21:28 | NUR ---
Nurse Note, family status update to family Daughter Swetha updated on patient's current medication and current status.
--- NOTE | 2020-02-23 21:35 | NUR ---
ANTONIO Craven at 2135. Doctor Maloney in room. Reference code blue sheet. Family updated. Addendum: 02/23/20 at 2252 by Indy Segundo RN RN Patient remains on Levophed, Vasopressin, Neosynephrine at maximum dose. Nimbex, Fentanl, Versed off.
[2020-02-23] MEDS ORDERED: EPINEPHRINE 10 MG in DEXTROSE 5%-WATER 250 ML IV SCH (21:45)
[2020-02-23 22:00] LABS: MEAN CORPUSCULAR HEMOGLOBIN 31.2 pg (27.0-33.0); MEAN CORPUSCULAR HGB CONC 30.8 g/dL (32.0-36.0); MEAN CORPUSCULAR VOLUME 101.4 fL (79-99); NUCLEATED RED BLOOD CELLS 30.3 % (0.0-0.19); PLATELET COUNT (AUTO) 149 K/uL (130-400); RED BLOOD CELL COUNT(AUTO) 3.65 MIL/uL (4.00-5.50); RED CELL DISTRIBUTION WIDTH 15.8 % (11.0-15.5); WHITE BLOOD COUNT (AUTO) 16.7 K/uL (4.8-10.8)
[2020-02-23 22:34] LABS: BILIRUBIN,TOTAL 2.2 mg/dL (0.2-1.0); CREATININE 4.1 mg/dL (0.5-1.5); MAGNESIUM 2.8 mg/dL (1.80-2.40); PHOSPHORUS 11.7 mg/dL (2.5-4.9); TOTAL PROTEIN, SERUM 4.4 g/dL (6.0-8.3)
[2020-02-23 22:49] LABS: BAND NEUTROPHILS % (MANUAL) 5 % (0-2); LYMPHOCYTES % (MANUAL) 6 % (22-44); MAN.DIFF COMMENT-IMPRESSION MANUAL DIFFERENTIAL; MONOCYTES % (MANUAL) 2 % (2-9); SEGMENTED NEUTROPHILS % 87 % (40-70)
[2020-02-23 22:55] LABS: POTASSIUM 7.6 mmol/L (3.5-5.1)
[2020-02-23] MEDS ORDERED: CALCIUM GLUCONATE 1 GM in SODIUM CHLORIDE 0.9% 100 ML IV ONE (23:30)
[2020-02-23] MEDS ORDERED: 1/2 NORMAL SALINE 1,000 ML IV ONE (23:52)
[2020-02-24] VITALS (26 sets, daily range): BP systolic 11–117; BP diastolic 0–34
[2020-02-24] MEDS ORDERED: 1/2 NORMAL SALINE IV SCH
[2020-02-24] MEDS ORDERED: GLUCAGON 1MG KIT 1 MG ML IM PRN
[2020-02-24] MEDS ORDERED: DEXTROSE 50%-WATER 50 ML DISP.SYRIN IV PRN
[2020-02-24] MEDS ORDERED: DEXTROSE 50%-WATER 50 ML DISP.SYRIN IV ONE (00:28)
--- NOTE | 2020-02-24 00:34 | NUR ---
2300 Critical labs called to Dr. Maloney. See orders given. Hypoglycemic protocol initiated. Patient status reported. Addendum: 02/24/20 at 0133 by Indy Segundo RN RN Repeat blood sugar. Continue Hypoglycemic protocol as ordered per . Addendum: 02/24/20 at 0429 by Indy Segundo RN RN Approximately 0330 patient's HR decrease, BP continues to be unstable. Epi drip started Approximately 0400 patient's HR ranging less than 60 sustained with a range of 30-60. Dr. Christensen notified. Atropine given as ordered.
[2020-02-24] MEDS ORDERED: EPHEDRINE SULFATE 50 MG/ML AMPULE ONE (03:58)
[2020-02-24] MEDS ORDERED: SODIUM CHLORIDE 0.9% 250 ML IV ONE (04:02)
[2020-02-24] MEDS ORDERED: ATROPINE SULFATE 0.1 MG/ML 10 ML SYG IVP ONE (04:06)
[2020-02-24] MEDS ORDERED: FUROSEMIDE 10 MG/ML 10ML VIAL IVP SCH (04:30)
[2020-02-24] MEDS ORDERED: FUROSEMIDE 10 MG/ML 2ML VIAL ONE (04:36)
[2020-02-24 04:48] LABS: ABG BASE EXCESS -26.3 mmol/L (-2.0-3.0); ABG HCO3 6.7 mmol/L (21.0-28.0); ABG OXYGEN SATURATION 65.1 % (95.0-99.0); ABG PCO2 40 mmHg (32-45)
[2020-02-24 04:57] LABS: BASOPHILS % (AUTO) 0.3 % (0.0-5.0); EOSINOPHILS % (AUTO) 0.8 % (0.0-8.0); HEMATOCRIT 33.4 % (36-48); LYMPHOCYTES % (AUTO) 6.3 % (21.0-51.0); MEAN CORPUSCULAR HEMOGLOBIN 32.3 pg (27.0-33.0); MEAN CORPUSCULAR HGB CONC 30.2 g/dL (32.0-36.0); MEAN CORPUSCULAR VOLUME 106.7 fL (79-99); MONOCYTES % (AUTO) 3.9 % (3.0-13.0); NEUTROPHILS % (AUTO) 78.8 % (40.0-77.0); PLATELET COUNT (AUTO) 113 K/uL (130-400); RED BLOOD CELL COUNT(AUTO) 3.13 MIL/uL (4.00-5.50); RED CELL DISTRIBUTION WIDTH 16.3 % (11.0-15.5); WHITE BLOOD COUNT (AUTO) 20.4 K/uL (4.8-10.8)
[2020-02-24 05:10] LABS: ALBUMIN 0.8 g/dL (3.5-5.0); BILIRUBIN,TOTAL 1.9 mg/dL (0.2-1.0); CRP QUANTITATIVE 70.8 mg/L (0.00-9.0); TOTAL PROTEIN, SERUM 3.7 g/dL (6.0-8.3)
[2020-02-24 06:08] LABS: ABG BASE EXCESS -29.8 mmol/L (-2.0-3.0); ABG HCO3 3.7 mmol/L (21.0-28.0); ABG OXYGEN SATURATION 78.8 % (95.0-99.0); ABG PCO2 26 mmHg (32-45)
[2020-02-24 07:02] LABS: POTASSIUM 8.9 mmol/L (3.5-5.1)
--- NOTE | 2020-02-24 07:34 | NUR ---
Patient 615, pronounced by Dr. Christensen. Family updated.
[2020-02-24] MEDS ORDERED: ENOXAPARIN SODIUM 100 MG/1 ML SQ SCH (09:00)
== END 2020-02-24 06:16 | disposition expired | DRG 208 ==
LOC: EDH 21:38 → EDHIP 21:39 → 2AH 02-18 04:36 → 2CH 02-19 21:03
PROVIDERS: ADMIT Internal Medicine; ATTEND Internal Medicine
PROC: 0BH17EZ Insertion of Endotracheal Airway into Trachea, Via Natural or Artificial Opening (ICD-10-PCS; principal; 2020-02-20)
PROC: 5A1945Z Respiratory Ventilation, 24-96 Consecutive Hours (ICD-10-PCS; 2020-02-20)
PROC: XW033E5 Introduction of Remdesivir Anti-infective into Peripheral Vein, Percutaneous Approach, New Technology Group 5 (ICD-10-PCS; 2020-02-22)
DX: U07.1 COVID-19 (principal); A41.89 Other specified sepsis; J96.01 Acute respiratory failure with hypoxia; J12.89 Other viral pneumonia; E43 Unspecified severe protein-calorie malnutrition; J96.02 Acute respiratory failure with hypercapnia; R65.21 Severe sepsis with septic shock; A41.51 Sepsis due to Escherichia coli [E. coli]; N39.0 Urinary tract infection, site not specified; Z16.24 Resistance to multiple antibiotics; E87.1 Hypo-osmolality and hyponatremia; N17.9 Acute kidney failure, unspecified; Z20.828 Contact with and (suspected) exposure to other viral communicable diseases; E11.65 Type 2 diabetes mellitus with hyperglycemia; D69.6 Thrombocytopenia, unspecified; E11.22 Type 2 diabetes mellitus with diabetic chronic kidney disease; E66.01 Morbid (severe) obesity due to excess calories; E86.0 Dehydration; E87.5 Hyperkalemia; E87.8 Other disorders of electrolyte and fluid balance, not elsewhere classified; N18.9 Chronic kidney disease, unspecified; Z68.38 Body mass index [BMI] 38.0-38.9, adult
CPT/HCPCS: 31500; 36415; 36600; 71045; 71275; 74018; 80048; 80053; 80076; 80202; 81001; 82248; 82435; 82550; 82728; 82803; 82947; 82948; 83036; 83605; 83615; 83690; 83735; 83874; 83880; 84100; 84132; 84145; 84295; 84484; 85018; 85025; 85027; 85378; 85610; 85730; 86140; 86850; 86870; 86900; 86901; 87040; 87077; 87088; 87186; 87426; 87804; 92950; 93005; 93970; 94002; 94003; 94660; 94760; A4606; C1751; C1894; G0378; J0171; J0456; J0461; J0610; J0696; J1100; J1644; J1650; J1940; J2185; J2370; J2704; J2920; J2930; J3010; J3370; J3475; J3490; J7030; J7040; J7050; J7060; J7070; Q9967; U0003